=== PATIENT | male | born 1975 | race Caucasian/White ===

== ENCOUNTER 2020-03-19 17:45 | Emergency (ER) | payer MEDICAID ==
[~2020-03-19] VITALS: Ht 185.4 cm; Wt 90.7 kg
[2020-03-19 17:48] VITALS: Ht 185.4 cm; Wt 90.7 kg
[2020-03-19 18:51] LABS: BASOPHIL % 0.3 % (0-2); PLATELET COUNT 271 x10^3mcL (130-400); RED CELL DISTRIBUTION WIDTH 13.5 % (11.5-14.5)
[2020-03-19 19:03] LABS: CALCIUM 8.6 mg/dL (8.5-10.1); CARBON DIOXIDE 30.1 mmol/L (21-32); CHLORIDE SERUM 104 mmol/L (98-107); CREATININE SERUM 0.8 mg/dL (0.7-1.3); GFR1 > 60 mL/min; GLUCOSE SERUM 91 mg/dL (74-106); POTASSIUM SERUM 4.3 mmol/L (3.5-5.1); SODIUM SERUM 140 mmol/L (136-145)
[2020-03-19 19:10] LABS: ALBUMIN 3.5 g/dL (3.4-5.0); ALKALINE PHOSPHATASE 87 U/L (46-116); ALT/SGPT 28 U/L (16-63); AST/SGOT 18 U/L (15-37); BILIRUBIN TOTAL 0.5 mg/dL (0.20-1.00); LIPASE 102 IU/L (73-393); TOTAL PROTEIN, SERUM 6.9 g/dL (6.4-8.2)
[2020-03-19 19:34] VITALS: BP 124/83
== END 2020-03-19 19:34 | disposition home or self-care (01) ==
LOC: ED 17:45
PROVIDERS: Specialist
DX: R10.31 Right lower quadrant pain (principal); R10.32 Left lower quadrant pain; H92.03 Otalgia, bilateral; J02.9 Acute pharyngitis, unspecified
CPT/HCPCS: 36415; J1885; Q0162

== ENCOUNTER 2020-05-27 20:32 | Emergency (ER) | payer MEDICAID ==
[~2020-05-27] VITALS: Ht 185.4 cm; Wt 109.3 kg
[2020-05-27 20:43] VITALS: Ht 185.4 cm; Wt 109.3 kg
[2020-05-27 22:18] VITALS: BP 133/86
== END 2020-05-27 22:18 | disposition home or self-care (01) ==
LOC: ED 20:32
DX: L98.9 Disorder of the skin and subcutaneous tissue, unspecified (principal)
CPT/HCPCS: 87491; 87591; J0696